=== PATIENT | male | born 1945 | race Caucasian/White ===

== ENCOUNTER → 2019-07-06 00:01 | Outpatient (RCR) | payer OTHER, SELFPAY | LOC: WOUND 06-28 13:00 | PROVIDERS: Family Provider Orthopaedic Surgery; Visit Provider Nurse Practitioner Family | DX: M79.604 Pain in right leg (principal) | CPT/HCPCS: 93971 ==

== ENCOUNTER 2019-10-21 15:12 | Emergency (ER) | payer OTHER, SELFPAY ==
[2019-10-21] VITALS (10 sets, daily range): BP systolic 100–166; BP diastolic 55–106; PULSE 78–136; RESP 16–20; TEMP 37.6–39.6; O2SAT 95–100; BMI 34.2
--- NOTE | 2019-10-21 15:27 | CT_ITS ---
WS: [id number] CT HEAD NONCONTRAST HISTORY: CASEY/AMS TECHNIQUE: Contiguous axial imaging performed through the brain in 2.5 mm imaging. Bone and soft tiss ue windows. Sagittal and coronal reformats reviewed. All CT scans at [facility] use at le ast one of these dose optimization techniques: automated exposure control; mA and/or kV adjustment pe r patient size (includes targeted exams where dose is matched to clinical indication); or iterative r econstruction. DLP: 969.44 mGy.cm COMPARISON: None available. Bilateral small subdural fluid collections. These are minimally hyperdense with the largest collectio n measuring 5.2 mm over the RIGHT frontal lobe. No dense acute blood products. Moderate atrophy and severe chronic mild white matter disease. No midline shift. Large prior infarct in the RIGHT basal ganglia. There is a MANAGER TECHNICAL shunt catheter entering the posterior LEFT occipital horn. Tip crosses the midline to and in the lateral ventricle on the RIGHT. Ventricles: No significant hydrocephalus. No inferior displacement of cerebellar tonsils. Paranasal sinuses: Mixed density in the LEFT maxillary sinus. Near complete opacification with soft t issue. Mild mucoperiosteal thickening in the ethmoid air cells. Mastoid air cells: Well pneumatized. Calvarium and scalp: Remote RIGHT frontal migue hole. LEFT temporal migue hole in the posterior LEFT pa rietal migue hole. CT/CT head wo con* [id number] IMPRESSION: 1. Small bilateral mildly complex subdural collections. 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 No dense acute blood products. If the patient is anemic these co uld be acute subdural hematomas but thought less likely. 2. LEFT parietal MANAGER TECHNICAL shunt catheter with tip terminating in the RIGHT lateral v entricle. No hydrocephalus. 3. Moderate atrophy with severe chronic ischemic disease and prior RIGHT basal ganglia infarct. 4. LEFT maxillary mixed opacification. Probably due to inspissated material. F ungal infection should be considered due to the mixed density in the sinuses.
--- NOTE | 2019-10-21 15:27 | CT_ITS ---
WS: [id number] CT CERVICAL SPINE HISTORY: PAIN TECHNIQUE: Contiguous 2.5 mm axial imaging performed through the entire cervical spine. Sagittal and coronal reformats also performed. All CT scans at [facility] use at least one of these do se optimization techniques: automated exposure control; mA and/or kV adjustment per patient size (inc ludes targeted exams where dose is matched to clinical indication); or iterative reconstruction. DLP: 1266.86 mGy.cm COMPARISON: None available. Quality of examination is limited by motion. Posterior cervical alignment is normal. Craniocervical j unction is negative. Odontoid is intact. C1 and C2 are normally aligned. Vertebral body osteophytes a nd facet joint arthritis throughout the cervical spine. No fracture. Extensive atherosclerosis carotid arteries and intracranial arteries. CT/CT cervical spin wo con* [id number] IMPRESSION: 1. Examination is significantly limited by motion artifact. 2. No fracture identified taking into consideration the limitations. 3. Multilevel facet joint arthritis and spondylosis.
--- NOTE | 2019-10-21 15:27 | CT_ITS ---
WS: [id number] CT FACIAL BONES HISTORY: FALL/INJURY TECHNIQUE: Images obtained from the supraorbital location through the mandible. Soft tissue and bone windows are reviewed. Coronal and sagittal reformats have also been submitted. DLP: 856.[address] scans at [facility] use at least one of these dose optimization techniques: automat ed exposure control; mA and/or kV adjustment per patient size (includes targeted exams where dose is matched to clinical indication); or iterative reconstruction. COMPARISON: None available. No facial bone fractures are identified. Nasal bones and zygomatic arches are intact. There is dense, heterogeneous opacification of the LEFT maxillary sinus. Heavy calcification in the carotid arteries . Upper cervical spine is negative. CT/CT facial bones wo con* [id number] IMPRESSION: 1. No facial bone fracture. 2. LEFT maxillary sinusitis, inspissated material versus fungal infection.
--- NOTE | 2019-10-21 15:28 | XR_ITS ---
WS: [id number] PORTABLE CHEST HISTORY: cough COMPARISON: None available. BARREL MAKER shunt catheter projects over the LEFT thorax. Scattered opacifications over both lungs but greatest on the RIGHT. No dense consolidation of pneumon ia. No pleural effusion or pneumothorax. Cardiac size: Normal. Mediastinum/Aorta: Mild atherosclerosis aorta. Advanced degenerative changes at the LEFT glenohumeral joint. XR/XR chest 1V portable 12889 IMPRESSION: Scattered pulmonary opacifications. May be due to pneumonitis or edema.
--- NOTE | 2019-10-21 16:00 | ED_ITS ---
HPI - Fall General: Chief Complaint: Fall Stated Complaint: DECREASED LOC POST FALL Time Seen by Provider: 10/21/19 15:24 History of Present Illness: HPI Narrative: Mr. Shipley is a 73-year-old male who comes in with altered mental status. Is been reported that he fell yesterday hitting his head but did not have loss of consciousness. He did well yesterday but today he has been lethargic. He has developed a temperature running anywhere from 99-104 degrees at home. The patient is unable to give any further history as he is confused at this time. His GCS is 13. No family is available to give history and there is no information on old charts to pull from. Review of Systems General: Reports: ROS unobtainable due to mental status PFSH ED PFSH: Social History Smoking and tobacco status: unknown if ever smoked Physical Exam Const: COMMON NORMALS: no apparent distress, no limitations, healthy appearing and well nourished EXAM LIMITATIONS: no altered mental status GENERAL APPEARANCE: cooperative, well kempt and well developed ORIENTATION/CONSCIOUSNESS: Yes awake HENMT: COMMON NORMALS: normocephalic, head/scalp atraumatic, hearing grossly normal bilaterally, external ears normal, EAC's normal, external nose normal and moist oral mucous membranes HEAD & SCALP: normal to inspection, normocephalic and atraumatic FACE & SINUS: normal facial exam and face symmetric NOSE: external nose normal and nares normal EXTERNAL EAR: Yes external ears normal EXTERNAL AUDITORY CANAL: EAC's normal MOUTH: oral and palatal mucosa normal and tongue normal Eye: COMMON NORMALS: PERRL, EOMs intact bilaterally, conjunctivae normal and no scleral icterus GENERAL EYE: normal appearance of both eyes and normal light reflex CONJUNCTIVA: Yes conjunctivae normal SCLERA: sclerae normal CORNEA: Yes corneas normal PUPIL: Yes PERRL DIRECT OPHTHALMOSCOPY: Yes normal light reflex Neck/C-Spine: COMMON NORMALS: full ROM, no lymphadenopathy, supple, no meningeal signs and no JVD GENERAL: Yes normal visual inspection and Yes trachea midline CERVICAL SPINE: Yes cervical ROM normal Chest: COMMONS NORMALS: inspection of chest normal and palpation of chest normal Resp: COMMON NORMALS: normal respiratory effort, no retractions, no use of accessory muscles and clear to auscultation bilaterally EFFORT & INSPECTION: Yes able to speak in complete sentences AUSCULTATION: clear to auscultation bilaterally Cardio: COMMON NORMALS: no JVD, regular rate, regular rhythm, S1 normal heart sound, S2 normal heart sound, no gallops, no clicks, no murmurs and no rub JUGULAR VENOUS DISTENTION: no JVD RATE: regular rate RHYTHM: regular rhythm HEART SOUNDS: S1 normal and S2 normal GI: COMMON NORMALS: soft to palpation, non-tender, no hepatosplenomegaly and no masses INSPECTION: Yes normal to inspection PALPATION: Yes soft and Yes no hepatosplenomegaly : COMMON NORMALS: Yes no CVA tenderness BLADDER/KIDNEY EXAM: Yes no CVA tenderness Back/Pelvis: COMMON NORMALS: no CVA tenderness, thoracic and lumbar spine normal to inspection, no thoracic nor lumbar tenderness and thoraco-lumbar ROM normal Extremity: COMMON NORMALS: normal to inspection, full ROM, normal capillary refill, no joint enlargement, no clubbing, cyanosis or edema and no calf tenderness Neuro: LIANNA COMA SCALE: document GCS findings Morehouse coma scale eye opening: To sound Morehouse coma scale verbal response: Confused Lianna coma scale motor response: Obey commands Morehouse coma scale total score: 13 COMMON NORMALS: CN's II-XII intact bilaterally, moves all extremities, no focal motor deficits and no sensory deficits noted MENINGEAL SIGNS: Yes no meningeal signs Psych: COMMON NORMALS: mental status grossly normal, thought process normal, cooperative, affect normal, speech normal and activity/motor behavior normal APPEARANCE: Yes well kempt SPEECH: Yes normal speech THOUGHT PROCESS: normal thought process Skin: COMMON NORMALS: no rashes or lesions noted, skin turgor normal, no jaundice, no petechiae and no mottling GENERAL SKIN EXAM: no rashes or lesions noted and turgor normal Course ED course: 1744 -the patient is more alert at this time. He is answering yes and no questions but does not remembering recent events. He denies any pain at this time. I have called family to get more of a complete report but they did not answer the phone and have not returned my phone call after message was left. Vital Signs: Vital signs: Vital Signs Temperature 103.2 F H 10/21/19 15:14 Pulse Rate 136 H 10/21/19 15:14 Respiratory Rate 18 10/21/19 15:14 Blood Pressure 128/89 10/21/19 15:14 Pulse Oximetry 98 10/21/19 15:14 MDM - Fall MDM Narrative: Medical decision making narrative: The case was reviewed with Dr. Cortez, with the patient's CT findings he would prefer the patient be transferred to a facility that has neurosurgical backup. I contacted the of Mr. Shipley he states his work-up has been done at the [facility]. I discussed the case with Dr. Schuster there and he will accept the patient to the MICU. I reviewed the case in its entirety with him and he had no further recommendations. The patient is improved at this time his temp is down to 99.6 and his heart rate is controlled on Cardizem. His blood pressure is stable. He has no difficulty breathing and his mentation has improved. Lab Data: Attestation: I reviewed the patient's lab results. Labs: Lab Results 10/21/19 10/21/19 10/21/19 Range/Units 16:08 16:42 16:42 WBC 14.3 H (4.0-10.0) 10^3/ uL RBC 4.15 (4.1-5.3) 10^6/u L Hgb 14.1 (11.7-16.6) g/dL Hct 42.5 (42.0-52.0) % MCV 102.4 H (80-94) fL MCH 34.0 (28.0-34.0) pg MCHC 33.2 (30.0-36.0) g/dL RDW 15.7 H (12.1-15.1) % Plt Count 110 L (130-400) 10^3/c mm MPV 10.3 (7.4-10.4) fL Neut % (Auto) 73.2 % Lymph % (Auto) 14.5 % Vigo % (Auto) 11.6 % Eos % (Auto) 0.0 % Baso % (Auto) 0.1 % Neut # (Auto) 10.4 H (1.8-7.7) 10^3/u L Lymph # (Auto) 2.1 (0.8-4.8) 10^3/u L Vigo # (Auto) 1.7 H (0.2-0.9) 10^3/u L Eos # (Auto) 0.0 (0.0-0.8) 10^3/u L Baso # (Auto) 0.0 (0.0-0.1) 10^3/u L Nucleated RBC % (a uto) 0 % Nucleated RBCs # 0.0 /100WBC Specimen Type Arterial Sample Site Radial, left ABG pH 7.46 H (7.35-7.45) ABG pCO2 37.6 (35-45) mmHg ABG pO2 85.3 (80.0-100.0) mmH g ABG HCO3 26.6 H (22-26) mmol/L ABG Base Excess 2.8 H (-2.0-2.0) mmol/ L El Test Pos Hematocrit 43.0 (42-52) % O2 Delivery Device Nc O2 Liters/Min 2.0 % FiO2 28.0 % Satellite Communications Engineer ID ed Sodium 133 L (136-145) mmol/L Potassium 4.2 (3.5-5.1) mmol/L Chloride 94 L (98-107) mmol/L Carbon Dioxide 25 (22-29) mmol/L Anion Gap 18.2 (5-19) BUN 32 H (8-23) mg/dL Creatinine 1.8 H (0.7-1.2) mg/dL Glucose 209 H (65-115) mg/dL Calculated Osmolal ity 279 L (285-295) mOsm/k g Lactic Acid (0.5-2.2) mmol/L Lactic Acid (Sepsi s) (0.5-2.2) mmol/L Calcium 9.6 (8.5-10.5) mg/dL Magnesium 2.0 (1.7-2.3) mg/dL Total Bilirubin 1.0 (0.15-1.2) mg/dL AST 32 (0-40) U/L ALT 24 (0-41) U/L Alkaline Phosphata se 67 (40-130) IU/L Creatine Kinase 605 H* (39-308) U/L Troponin T Baselin e (0-15) ng/mL Troponin T 120 Min la posta (0-15) ng/mL Delta Troponin T (0-10) ABS# Total Protein 7.3 (6.6-8.7) g/dL Albumin 3.5 (3.5-5.2) g/dL Globulin 3.8 (1.3-4.6) g/dL Lipase 24 (13-60) U/L TSH 0.49 (0.27-4.20) uIU/ mL Urine Color (Yellow) Urine Appearance (CLEAR) Urine pH (5-7) Ur Specific Gravit y (1.005-1.030) Urine Protein (Negative) Urine Glucose (UA) (Normal) Urine Ketones (Negative) Urine Blood (Negative) Urine Nitrate (Negative) Urine Bilirubin (NEGATIVE) Urine Urobilinogen (Negative) mg/dL Ur Leukocyte Lashay ase (Negative) Urine RBC (0-2) /hpf Urine WBC (0-5) /hpf Ur Squamous Epith Cells (0-5) Urine Bacteria (NONE) Influenza Type A A g (Negative) Influenza Type B A g (Negative) 10/21/19 10/21/19 10/21/19 Range/Units 16:42 16:42 16:53 WBC (4.0-10.0) 10^3/ uL RBC (4.1-5.3) 10^6/u L Hgb (11.7-16.6) g/dL Hct (42.0-52.0) % MCV (80-94) fL MCH (28.0-34.0) pg MCHC (30.0-36.0) g/dL RDW (12.1-15.1) % Plt Count (130-400) 10^3/c mm MPV (7.4-10.4) fL Neut % (Auto) % Lymph % (Auto) % Vigo % (Auto) % Eos % (Auto) % Baso % (Auto) % Neut # (Auto) (1.8-7.7) 10^3/u L Lymph # (Auto) (0.8-4.8) 10^3/u L Vigo # (Auto) (0.2-0.9) 10^3/u L Eos # (Auto) (0.0-0.8) 10^3/u L Baso # (Auto) (0.0-0.1) 10^3/u L Nucleated RBC % (a uto) % Nucleated RBCs # /100WBC Specimen Type Sample Site ABG pH (7.35-7.45) ABG pCO2 (35-45) mmHg ABG pO2 (80.0-100.0) mmH g ABG HCO3 (22-26) mmol/L ABG Base Excess (-2.0-2.0) mmol/ L El Test Hematocrit (42-52) % O2 Delivery Device O2 Liters/Min % FiO2 % Satellite Communications Engineer ID Sodium (136-145) mmol/L Potassium (3.5-5.1) mmol/L Chloride (98-107) mmol/L Carbon Dioxide (22-29) mmol/L Anion Gap (5-19) BUN (8-23) mg/dL Creatinine (0.7-1.2) mg/dL Glucose (65-115) mg/dL Calculated Osmolal ity (285-295) mOsm/k g Lactic Acid 2.1 (0.5-2.2) mmol/L Lactic Acid (Sepsi s) (0.5-2.2) mmol/L Calcium (8.5-10.5) mg/dL Magnesium (1.7-2.3) mg/dL Total Bilirubin (0.15-1.2) mg/dL AST (0-40) U/L ALT (0-41) U/L Alkaline Phosphata se (40-130) IU/L Creatine Kinase (39-308) U/L Troponin T Baselin e 153 H* (0-15) ng/mL Troponin T 120 Min la posta (0-15) ng/mL Delta Troponin T (0-10) ABS# Total Protein (6.6-8.7) g/dL Albumin (3.5-5.2) g/dL Globulin (1.3-4.6) g/dL Lipase (13-60) U/L TSH (0.27-4.20) uIU/ mL Urine Color (Yellow) Urine Appearance (CLEAR) Urine pH (5-7) Ur Specific Gravit y (1.005-1.030) Urine Protein (Negative) Urine Glucose (UA) (Normal) Urine Ketones (Negative) Urine Blood (Negative) Urine Nitrate (Negative) Urine Bilirubin (NEGATIVE) Urine Urobilinogen (Negative) mg/dL Ur Leukocyte Lashay ase (Negative) Urine RBC (0-2) /hpf Urine WBC (0-5) /hpf Ur Squamous Epith Cells (0-5) Urine Bacteria (NONE) Influenza Type A A g Negative (Negative) Influenza Type B A g Negative (Negative) 10/21/19 10/21/1920 Range/Units 17:55 19:00 19:00 WBC (4.0-10.0) 10^3/ uL RBC (4.1-5.3) 10^6/u L Hgb (11.7-16.6) g/dL Hct (42.0-52.0) % MCV (80-94) fL MCH (28.0-34.0) pg MCHC (30.0-36.0) g/dL RDW (12.1-15.1) % Plt Count (130-400) 10^3/c mm MPV (7.4-10.4) fL Neut % (Auto) % Lymph % (Auto) % Vigo % (Auto) % Eos % (Auto) % Baso % (Auto) % Neut # (Auto) (1.8-7.7) 10^3/u L Lymph # (Auto) (0.8-4.8) 10^3/u L Vigo # (Auto) (0.2-0.9) 10^3/u L Eos # (Auto) (0.0-0.8) 10^3/u L Baso # (Auto) (0.0-0.1) 10^3/u L Nucleated RBC % (a uto) % Nucleated RBCs # /100WBC Specimen Type Sample Site ABG pH (7.35-7.45) ABG pCO2 (35-45) mmHg ABG pO2 (80.0-100.0) mmH g ABG HCO3 (22-26) mmol/L ABG Base Excess (-2.0-2.0) mmol/ L El Test Hematocrit (42-52) % O2 Delivery Device O2 Liters/Min % FiO2 % Satellite Communications Engineer ID Sodium (136-145) mmol/L Potassium (3.5-5.1) mmol/L Chloride (98-107) mmol/L Carbon Dioxide (22-29) mmol/L Anion Gap (5-19) BUN (8-23) mg/dL Creatinine (0.7-1.2) mg/dL Glucose (65-115) mg/dL Calculated Osmolal ity (285-295) mOsm/k g Lactic Acid (0.5-2.2) mmol/L Lactic Acid (Sepsi s) 1.6 (0.5-2.2) mmol/L Calcium (8.5-10.5) mg/dL Magnesium (1.7-2.3) mg/dL Total Bilirubin (0.15-1.2) mg/dL AST (0-40) U/L ALT (0-41) U/L Alkaline Phosphata se (40-130) IU/L Creatine Kinase (39-308) U/L Troponin T Baselin e (0-15) ng/mL Troponin T 120 Min la posta 143.7 H (0-15) ng/mL Delta Troponin T -9.3 L (0-10) ABS# Total Protein (6.6-8.7) g/dL Albumin (3.5-5.2) g/dL Globulin (1.3-4.6) g/dL Lipase (13-60) U/L TSH (0.27-4.20) uIU/ mL Urine Color Yellow (Yellow) Urine Appearance Clear (CLEAR) Urine pH 5 (5-7) Ur Specific Gravit y 1.010 (1.005-1.030) Urine Protein 3+ H (Negative) Urine Glucose (UA) Norm (Normal) Urine Ketones Negative (Negative) Urine Blood 2+ H (Negative) Urine Nitrate Negative (Negative) Urine Bilirubin Neg (NEGATIVE) Urine Urobilinogen Norm (Negative) mg/dL Ur Leukocyte Lashay ase Negative (Negative) Urine RBC 5-10 H (0-2) /hpf Urine WBC 0-4 H (0-5) /hpf Ur Squamous Epith Cells 0-4 H (0-5) Urine Bacteria 1+ H (NONE) Influenza Type A A g (Negative) Influenza Type B A g (Negative) Imaging Data^: CT Head: Radiologist's impression: [address] [address] [address] Scan Report Signed Patient: Gabino Shipley Unit #: [id number] : 1945 Age/Sex: 73 / M ADM Date: Loc: ER Room/Bed: Attending Dr: Ordering Provider/Ordering MD: Amie Meyer DO Date of Service: 10/21/19 Procedure(s): CT head wo con* [id number] Accession Number(s): [id number] Report Number: [id number] WS: [id number] CT HEAD NONCONTRAST HISTORY: CASEY/AMS TECHNIQUE: Contiguous axial imaging performed through the brain in 2.5 mm imaging. Bone and soft tissue windows. Sagittal and coronal reformats reviewed. All CT scans at [facility] use at least one of these dose optimization techniques: automated exposure control; mA and/or kV adjustment per patient size (includes targeted exams where dose is matched to clinical indication); or iterative reconstruction. DLP: 969.44 mGy.cm COMPARISON: None available. Bilateral small subdural fluid collections. These are minimally hyperdense with the largest collection measuring 5.2 mm over the RIGHT frontal lobe. No dense acute blood products. Moderate atrophy and severe chronic mild white matter disease. No midline shift. Large prior infarct in the RIGHT basal ganglia. There is a PAPER SALES REPRESENTATIVE shunt catheter entering the posterior LEFT occipital horn. Tip crosses the midline to and in the lateral ventricle on the RIGHT. Ventricles: No significant hydrocephalus. No inferior displacement of cerebellar tonsils. Paranasal sinuses: Mixed density in the LEFT maxillary sinus. Near complete opacification with soft tissue. Mild mucoperiosteal thickening in the ethmoid air cells. Mastoid air cells: Well pneumatized. Calvarium and scalp: Remote RIGHT frontal migue hole. LEFT temporal migue hole in the posterior LEFT parietal migue hole. CT/CT head wo con* [id number] IMPRESSION: 1. Small bilateral mildly complex subdural collections. 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 No dense acute blood products. If the patient is anemic these could be acute subdural hematomas but thought less likely. 2. LEFT parietal PAPER SALES REPRESENTATIVE shunt catheter with tip terminating in the RIGHT lateral ventricle. No hydrocephalus. 3. Moderate atrophy with severe chronic ischemic disease and prior RIGHT basal ganglia infarct. 4. LEFT maxillary mixed opacification. Probably due to inspissated material. Fungal infection should be considered due to the mixed density in the sinuses. Dictated By: Monica Singleton DO Signed By: Monica Singleton DO Signed Date/Time: 10/21/19 1556 DD/ 155 CT Cervical Spine: Radiologist's impression: [facility] [address] [place] [address] CT Scan Report Signed Patient: Gabino Shipley Unit #: [id number] : 1945 Age/Sex: 73 / M ADM Date: 10/21/19 Loc: ER Room/Bed: Attending Dr: Ordering Provider/Ordering MD: Amie Meyer DO Date of Service: 10/21/19 Procedure(s): CT cervical spin wo con* [id number] Accession Number(s): [id number] Report Number: [id number] WS: [id number] CT CERVICAL SPINE HISTORY: PAIN TECHNIQUE: Contiguous 2.5 mm axial imaging performed through the entire c ervical spine. Sagittal and coronal reformats also performed. All CT scans at [facility] use at least one of these dose optimization techniques: automated exposure control; mA and/or kV adjustment per patient size (includes targeted exams where dose is matched to clinical indication); or iterative reconstruction. DLP: 1266.86 mGy.cm COMPARISON: None available. Quality of examination is limited by motion. Posterior cervical alignment is normal. Craniocervical junction is negative. Odontoid is intact. C1 and C2 are normally aligned. Vertebral body osteophytes and facet joint arthritis throughout the cervical spine. No fracture. Extensive atherosclerosis carotid arteries and intracranial arteries. CT/CT cervical spin wo con* [id number] IMPRESSION: 1. Examination is significantly limited by motion artifact. 2. No fracture identified taking into consideration the limitations. 3. Multilevel facet joint arthritis and spondylosis. Dictated By: Monica Singleton DO Signed By: Monica Singleton DO Signed Date/Time: 10/21/19 1603 DD/ 1601 CT Facial Bones: Radiologist's impression: [address] [address] [address] Scan Report Signed Patient: Gabino Shipley Unit #: [id number] : 1945 Age/Sex: 73 / M ADM Date: 10/21/19 Loc: ER Room/Bed: Attending Dr: Ordering Provider/Ordering MD: Amie Meyer DO Date of Service: 10/21/19 Procedure(s): CT facial bones wo con* [id number] Accession Number(s): [id number] Report Number: [id number] WS: [id number] CT FACIAL BONES HISTORY: FALL/INJURY TECHNIQUE: Images obtained from the supraorbital location through the mandible. Soft tissue and bone windows are reviewed. Coronal and sagittal reformats have also been submitted. DLP: 856.[address] scans at [facility] use at least one of these dose optimiza tion techniques: automated exposure control; mA and/or kV adjustment per patient size (includes targeted exams where dose is matched to clinical indication); or iterative reconstruction. COMPARISON: None available. No facial bone fractures are identified. Nasal bones and zygomatic arches are intact. There is dense, heterogeneous opacification of the LEFT maxillary sinus. Heavy calcif ication in the carotid arteries. Upper cervical spine is negative. CT/CT facial bones wo con* [id number] IMPRESSION: 1. No facial bone fracture. 2. LEFT maxillary sinusitis, inspissated material versus fungal infection. Dictated By: Monica Singleton DO Signed By: Monica Singleton DO Signed Date/Time: 10/21/19 1600 DD/ 1557 EKG Data^: EKG 1: Attestation: I personally reviewed and interpreted this EKG as follows: EKG interpretation date: 10/21/19 EKG interpretation time: 16:15 Interpretation: Atrial fibrillation with rapid ventricular response at 133 beats a minute, left axis deviation, nonspecific ST and T wave changes. Discharge Plan Discharge Patient Disposition: Xfer Short-Term Hosp Clinical Impression: Sepsis Condition: Stable Prescriptions: No Action Lipitor 80 mg Tablet 80 mg PO QPM RF: 0 gabapentin 600 mg Tablet 600 mg PO TID RF: 0 insulin glargine 100 unit/mL Solution See Rx Instructions .ROUTE .COMPLEX RF: 0 Aspir-81 81 mg Tablet,Delayed Release (Dr/Ec) 81 mg PO DAILY RF: 0 Ultram 50 mg Tablet 25 mg PO TID RF: 0 acetaminophen 500 mg Tablet 1,000 mg PO TID RF: 0 insulin aspart U-100 100 unit/mL Solution See Rx Instructions .ROUTE .COMPLEX RF: 0 niacinamide 500 mg Tablet 500 mg PO BID RF: 0 triamcinolone acetonide 0.1 % Ointment 1 applic TOPICAL BEDTIME RF: 0 Zantac 150 mg Tablet 150 mg PO TID RF: 0 metoprolol tartrate 50 mg Tablet 25 mg PO BID RF: 0 Lasix 20 mg Tablet See Rx Instructions .ROUTE .COMPLEX RF: 0 calcitriol 0.25 mcg Capsule See Rx Instructions .ROUTE .COMPLEX RF: 0 finasteride 5 mg Tablet 5 mg PO BEDTIME RF: 0 diclofenac sodium 1 % Gel See Rx Instructions .ROUTE .COMPLEX RF: 0 apixaban 5 mg Tablet 5 mg PO BID RF: 0 PreserVision AREDS-2 [id number] or-sfln-[id number]-mg Capsule 1 tab PO BID RF: 0 Refresh Tears See Rx Instructions .ROUTE .COMPLEX RF: 0 Vitamin D3 1 tab PO BID RF: 0 Referrals: Karlo Vargas MD [Family Provider] - Coding Level of Care Code ED Manager Developmental for Chg Fwd Exam Comprehensive
[2019-10-21 16:19] LABS: ABG PCO2 37.6 mmHg (35-45); ABG PH Result 7.46 (7.35-7.45); Base Excess ABG 2.8 mmol/L (-2.0-2.0); Blood Gas Allen Test Pos; Blood Gas Sample Site Radial, left; Blood Gas Sample Type Arterial; HCO3 ABG 26.6 mmol/L (22-26); Oxygen Device NC; PO2 ABG 85.3 mmHg (80.0-100.0)
[2019-10-21] MEDS: piperacillin-tazobactam 3.375 GM in sodium chloride 0.9% (plus) 50 ML IV (16:44)
[2019-10-21] MEDS: sodium chloride 0.9% 1,000 ML 100 ML IV (16:45)
[2019-10-21 16:58] LABS: Basophils % 0.1 %; Hematocrit 42.5 % (42.0-52.0); Hemoglobin 14.1 g/dL (11.7-16.6); Lymphocytes # 2.1 10^3/uL (0.8-4.8); Lymphocytes % 14.5 %; Mean Corpuscular HGB Conc 33.2 g/dL (30.0-36.0); Mean Corpuscular Volume 102.4 fL (80-94); Mean Platelet Volume 10.3 fL (7.4-10.4); Monocytes # 1.7 10^3/uL (0.2-0.9); Monocytes % 11.6 %; Neutrophils # 10.4 10^3/uL (1.8-7.7); Neutrophils % 73.2 %; Nucleated Red Blood Cells % 0 %; Platelet Count 110 10^3/cmm (130-400); Red Blood Count 4.15 10^6/uL (4.1-5.3); Red Cell Distribution Width 15.7 % (12.1-15.1); White Blood Count 14.3 10^3/uL (4.0-10.0)
[2019-10-21 17:19] LABS: Lactic Sepsis W/Reflex 2.1 mmol/L (0.5-2.2)
[2019-10-21 17:27] LABS: Troponin(5th) Baseline 153 ng/mL (0-15)
[2019-10-21 17:28] LABS: Alanine Aminotransferase 24 U/L (0-41); Albumin Level 3.5 g/dL (3.5-5.2); Alkaline Phosphatase 67 IU/L (40-130); Anion Gap 18.2 (5-19); Aspartate Amino Transferase 32 U/L (0-40); Blood Urea Nitrogen 32 mg/dL (8-23); Calcium 9.6 mg/dL (8.5-10.5); Carbon Dioxide 25 mmol/L (22-29); Chloride 94 mmol/L (98-107); Globulin 3.8 g/dL (1.3-4.6); Glucose 209 mg/dL (65-115); Lipase 24 U/L (13-60); Osmolality Calculated 279 mOsm/kg (285-295); Potassium 4.2 mmol/L (3.5-5.1); Sodium 133 mmol/L (136-145); Thyroid Stimulating Hormone 0.49 uIU/mL (0.27-4.20); Total Protein 7.3 g/dL (6.6-8.7)
[2019-10-21 17:31] LABS: Creatine Phosphokinase 605 U/L (39-308)
[2019-10-21 18:25] LABS: Influenza A by IFA Negative (Negative); Influenza B by IFA Negative (Negative)
[2019-10-21 18:40] LABS: Reflex Lactate Order REFLEX LACTIC ORDERD
[2019-10-21 18:43] LABS: Blood Urine 2+ (Negative); Glucose Urine UA Norm (Normal); Ketones Urine Negative (Negative); Protein Urine 3+ (Negative); Urine Appearance Clear (CLEAR); Urine Color Yellow (Yellow); pH Urine 5 (5-7)
[2019-10-21 18:44] LABS: Add Urine Culture? No; Bacteria Urine 1+; Bilirubin Urine Neg (NEGATIVE); Leukocyte Esterase Urine Negative (Negative); Nitrate Urine Negative (Negative); Squamous Epithelial Cell Urine 0-4 (0-5); Urobilinogen Urine Norm (Negative); WBC Urine 0-4 /hpf (0-5)
[2019-10-21 19:21] LABS: Lactic Acid level (Lactate) 1.6 mmol/L (0.5-2.2)
[2019-10-21 19:31] LABS: Troponin 5 2HR 143.7 ng/mL (0-15); Troponin 5 2HR Delta -9.3 ABS# (0-10)
[2019-10-21 19:44] LABS: INR 1.41 (0.8-1.2); Partial Thromboplastin Time 33.9 SECONDS (23.9-36.7)
[2019-10-21 20:11] LABS: NT Pro B Type Natriuretic Pept 3266 pg/mL (0-125)
--- NOTE | 2019-10-21 21:29 | ECG_ITS ---
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 [id number]
[2019-10-22 14:09] LABS: Coronavirus Lab Test PTC Negative
== END 2019-10-21 20:20 | disposition short-term general hospital (02) ==
PROVIDERS: Emergency Provider Emergency Medicine; Family Provider Orthopaedic Surgery
DX: A41.9 Sepsis, unspecified organism (principal); Z91.81 History of falling; I48.91 Unspecified atrial fibrillation; I44.4 Left anterior fascicular block; R05 Cough
CPT/HCPCS: 12345; 36415; 36600; 70450; 70486; 71045; 72125; 80053; 81001; 82550; 82803; 83605; 83690; 83735; 83880; 84443; 84484; 85025; 85610; 85730; 87040; 87077; 87086; 87186; 87205; 87635; 87804; 93005; 96365; 96366; 96367; 96375; 96376; 99284; 99291; J0131; J2543; J3370; J7030; J7040

== ENCOUNTER 2021-03-07 16:40 | Outpatient (CLI) | payer MEDICARE, SELFPAY ==
[2021-03-07 18:17] LABS: Alanine Aminotransferase 44 U/L (0-41); Albumin Level 3.2 g/dL (3.5-5.2); Alkaline Phosphatase 104 IU/L (40-130); Aspartate Amino Transferase 30 U/L (0-40); Blood Urea Nitrogen 42 mg/dL (8-23); Calcium 8.6 mg/dL (8.5-10.5); Carbon Dioxide 24 mmol/L (22-29); Chloride 100 mmol/L (98-107); Glucose 152 mg/dL (65-115); Osmolality Calculated 293 mOsm/kg (285-295); Sodium 135 mmol/L (136-145); Total Bilirubin 0.3 mg/dL (0.15-1.2); Total Protein 6.2 g/dL (6.6-8.7)
== END 2021-03-07 16:41 | disposition home or self-care (01) ==
PROVIDERS: PCP Orthopaedic Surgery; Visit Provider Internal Medicine
DX: N18.30 Chronic kidney disease, stage 3 unspecified (principal)
CPT/HCPCS: 80053

== ENCOUNTER → 2023-02-19 09:05 | Outpatient (BNVA) | payer OTHER, SELFPAY | PROVIDERS: PCP Orthopaedic Surgery; Visit Provider Thoracic Surgery (Cardiothoracic Vascular Surgery) | DX: E11.52 Type 2 diabetes mellitus with diabetic peripheral angiopathy with gangrene (principal); L97.812 Non-pressure chronic ulcer of other part of right lower leg with fat layer exposed; L89.892 Pressure ulcer of other site, stage 2 | CPT/HCPCS: 97597; 97598; 99213; A6021 ==

== ENCOUNTER 2023-02-25 09:28 | Outpatient (CLI) | payer OTHER, SELFPAY ==
--- NOTE | 2023-02-25 09:45 | USCV_ITS ---
Gabino Shipley Age: 77 Gender: M : 1945 Exam Date: 02/25/2023 09:40 Ordering Phys: Bud Tyler MD (Andy) ([email or web address]) Technologist: Shani De La Rosa Exam Location: [facility] – [place] Indication: HISTORY: PROCEDURES: FINDINGS: No DVT seen in any vessel examined No superficial thrombus seen in the Rt. GSV Reflux noted distal RT. GSV and below knee GSV on Rt. (measurements of Distal and below knee GSV and SSV are at end of study) Significant venous reflux was noted at the distal and below-knee segments of the greater saphenous vein on the right side. The reflux time was 1.52 and 1.58 seconds respectively. These venous segments measured 0.42 and 0.36 cm in diameter at the depth of 0.56 and 0.47 cm CONCLUSIONS 1. No evidence of DVT in the above-mentioned identifiable veins on the right side. 2. Significant venous reflux of greater than 500 ms were noted at the distal and below-knee segments of the greater saphenous vein on the right side. 3. The distal and below-knee segments of the greater saphenous vein on the right side were found to be very superficial, less than 1 cm from the surface. 4. No significant reflux was noted in the small saphenous vein, on the right side. Dr Cali Rader MD [facility] (Electronically Signed) Final Date: 26 February 2023 16:58 S
== END 2023-02-25 09:29 | disposition home or self-care (01) ==
PROVIDERS: PCP Orthopaedic Surgery; Visit Provider Thoracic Surgery (Cardiothoracic Vascular Surgery)
DX: S81.801A Unspecified open wound, right lower leg, initial encounter (principal); X58.XXXA Exposure to other specified factors, initial encounter; I87.2 Venous insufficiency (chronic) (peripheral)
CPT/HCPCS: 93971; 97597; 97598; 99213; A6021

== ENCOUNTER → 2023-02-26 13:00 | Outpatient (BNVA) | payer OTHER, SELFPAY | PROVIDERS: PCP Orthopaedic Surgery; Visit Provider Thoracic Surgery (Cardiothoracic Vascular Surgery) | DX: E11.52 Type 2 diabetes mellitus with diabetic peripheral angiopathy with gangrene (principal); L97.812 Non-pressure chronic ulcer of other part of right lower leg with fat layer exposed | CPT/HCPCS: 97597; 97598; A6021 ==

== ENCOUNTER → 2023-03-05 14:18 | Outpatient (BNVA) | payer OTHER, SELFPAY | PROVIDERS: PCP Orthopaedic Surgery; Visit Provider Thoracic Surgery (Cardiothoracic Vascular Surgery) | DX: E11.52 Type 2 diabetes mellitus with diabetic peripheral angiopathy with gangrene (principal); L97.812 Non-pressure chronic ulcer of other part of right lower leg with fat layer exposed; Z09 Encounter for follow-up examination after completed treatment for conditions other than malignant neoplasm | CPT/HCPCS: 97597; A6021 ==

== ENCOUNTER → 2023-03-12 09:58 | Outpatient (BNVA) | payer OTHER, SELFPAY | PROVIDERS: PCP Orthopaedic Surgery; Visit Provider Thoracic Surgery (Cardiothoracic Vascular Surgery) | DX: E11.52 Type 2 diabetes mellitus with diabetic peripheral angiopathy with gangrene (principal); L97.812 Non-pressure chronic ulcer of other part of right lower leg with fat layer exposed | CPT/HCPCS: 97597; A6021; A6252 ==

== ENCOUNTER → 2023-03-21 10:09 | Outpatient (BNVA) | payer OTHER, SELFPAY | PROVIDERS: PCP Orthopaedic Surgery; Visit Provider Nurse Practitioner Family | DX: E11.52 Type 2 diabetes mellitus with diabetic peripheral angiopathy with gangrene (principal); L97.812 Non-pressure chronic ulcer of other part of right lower leg with fat layer exposed | CPT/HCPCS: 87070; 87176; 87205; 97597; A6021 ==

== ENCOUNTER → 2023-04-04 09:01 | Outpatient (BNVA) | payer OTHER, SELFPAY | PROVIDERS: PCP Orthopaedic Surgery; Visit Provider Thoracic Surgery (Cardiothoracic Vascular Surgery) | DX: E11.52 Type 2 diabetes mellitus with diabetic peripheral angiopathy with gangrene (principal); L97.812 Non-pressure chronic ulcer of other part of right lower leg with fat layer exposed | CPT/HCPCS: 97597; A6021 ==

== ENCOUNTER → 2023-04-11 09:44 | Outpatient (BNVA) | payer OTHER, SELFPAY | PROVIDERS: PCP Orthopaedic Surgery; Visit Provider Thoracic Surgery (Cardiothoracic Vascular Surgery) | DX: E11.52 Type 2 diabetes mellitus with diabetic peripheral angiopathy with gangrene (principal); L97.811 Non-pressure chronic ulcer of other part of right lower leg limited to breakdown of skin | CPT/HCPCS: 97597; A6021 ==

== ENCOUNTER → 2023-04-25 09:05 | Outpatient (BNVA) | payer OTHER, SELFPAY | PROVIDERS: PCP Orthopaedic Surgery; Visit Provider Thoracic Surgery (Cardiothoracic Vascular Surgery) | DX: E11.52 Type 2 diabetes mellitus with diabetic peripheral angiopathy with gangrene (principal); E11.622 Type 2 diabetes mellitus with other skin ulcer; L97.812 Non-pressure chronic ulcer of other part of right lower leg with fat layer exposed | CPT/HCPCS: 99212; A6210 ==